=== PATIENT | female | born 1955 | race African-American/Black ===

== ENCOUNTER 2018-06-20 11:55 | Observation (INO) | payer OTHER ==
[2018-06-20] MEDS ORDERED: HEPARIN 1000 UNITS/ML 10 ML INJ (13:21)
[2018-06-20] MEDS ORDERED: LIDOCAINE 1% (MDV) 20 ML INJ (13:21)
[2018-06-20] MEDS ORDERED: IODIXANOL LOCM 100 ML BTL (13:21)
[2018-06-20] MEDS ORDERED: NITROGLYCERIN (IC) 100 MCG/ML INJ (13:22)
[2018-06-20] MEDS ORDERED: MIDAZOLAM 1 MG/ML 2 ML INJ (13:22)
[2018-06-20] MEDS ORDERED: VERAPAMIL 5 MG INJ (13:22)
[2018-06-20] MEDS ORDERED: FENTAnyl 50 MCG/ML VIAL (13:22)
[2018-06-20] MEDS: SOD CHLORIDE 0.9% 1,000 ML IV ×2 (15:39→20:43)
[2018-06-20] MEDS: morphine 2 MG INJ IV ×2 (15:40→20:43)
[2018-06-20] MEDS: ACETAMINOPHEN 325 MG TAB PO (20:43)
[2018-06-20] MEDS: ONDANSETRON 4 MG INJ IV (22:32)
[2018-06-21] MEDS: PANTOPRAZOLE 40 MG INJ IV (06:12)
[2018-06-21 06:24] LABS: ADD MAN DIFF? NO
[2018-06-21 06:28] LABS: WHITE BLOOD COUNT 2.8 10^3/ul (4.8-10.8)
[2018-06-21 06:28] LABS: BASOPHILS % 0.7 % (0.0-2.0); EOSINOPHILS # 0.1 10^3/ul (0.0-0.5); EOSINOPHILS % 4.3 % (0.0-7.0); HEMATOCRIT 35.1 % (37.0-47.0); HEMOGLOBIN 10.8 g/dl (12.0-16.0); LYMPHOCYTES # 0.9 10^3/ul (0.8-2.9); LYMPHOCYTES % 33.2 % (15.0-51.0); MEAN CORPUSCULAR HEMOGLOBIN 29.5 pg (29.0-33.0); MEAN CORPUSCULAR HGB CONC 30.8 g/dl (32.0-37.0); MEAN CORPUSCULAR VOLUME 95.9 fl (82.0-101.0); MEAN PLATELET VOLUME 10.6 fl (7.4-10.4); MONOCYTE # 0.3 10^3/ul (0.3-0.9); MONOCYTES % 9.4 % (0.0-11.0); NEUTROPHIL # 1.4 10^3/ul (1.6-7.5); PLATELET COUNT 155 10^3/UL (140-415); RED BLOOD COUNT 3.66 10^6/ul (4.20-5.40); RED CELL DISTRIBUTION WIDTH 17.4 % (11.5-14.5)
[2018-06-21 07:07] LABS: ANION GAP 9 (8-16); BLOOD UREA NITROGEN 13 mg/dl (7-20); CALCIUM 8.3 mg/dl (8.4-10.2); CARBON DIOXIDE 26 mmol/L (21-31); CHLORIDE 109 mmol/L (97-110); CREATININE 0.81 mg/dl (0.44-1.00); GLUCOSE 93 mg/dl (70-220); POTASSIUM 3.5 mmol/L (3.5-5.1); SODIUM 140 mmol/L (135-144)
[2018-06-21] MEDS: SOD CHLORIDE 0.9% 1,000 ML IV (08:50)
[2018-06-21] MEDS: ASPIRIN 81 MG TAB PO (09:07)
== END 2018-06-21 17:33 | disposition home or self-care (01) ==
LOC: SDS 11:55 → REC 18:06 → TEL 18:25
DX: I25.10 Atherosclerotic heart disease of native coronary artery without angina pectoris (principal); E78.5 Hyperlipidemia, unspecified; M32.9 Systemic lupus erythematosus, unspecified; D70.9 Neutropenia, unspecified; E83.51 Hypocalcemia; E66.3 Overweight; Z68.26 Body mass index [BMI] 26.0-26.9, adult; F32.9 Major depressive disorder, single episode, unspecified; G47.00 Insomnia, unspecified
CPT/HCPCS: 80048; 85025; 93005; 93458; G0378